=== PATIENT | female | born 1975 | race Hispanic/Latino ===

== ENCOUNTER 2017-03-31 09:46 | Inpatient (IN) | payer OTHER ==
[2017-03-31 10:00] VITALS: BMI 27.4
[2017-03-31 10:39] LABS: HEMATOCRIT 36.7 % (34.0-47.0); MEAN CELL VOLUME 88.4 fl (81.0-99.0); MEAN CORPUSCULAR HEMOGLOBIN 31.2 pg (27.0-31.0); MEAN CORPUSCULAR HGB CONC 35.3 g/dL (33.0-37.0); WHITE BLOOD COUNT 7.1 K/uL (4.8-10.8)
[2017-03-31] MEDS ORDERED: ceFAZolin IV 1 gm in Dextrose 1 GM/50 ML BAG IVPB ONE ×2 (10:46→10:47)
[2017-03-31 10:51] LABS: BLOOD UREA NITROGEN 13 mg/dl (7-17); CALCIUM 9.3 mg/dL (8.4-10.2); CARBON DIOXIDE 26 mmol/L (22-30); CHLORIDE 106 mmol/L (98-107); GFR AFRICAN-AMERICAN > 60; GLUCOSE,RANDOM 95 mg/dL (65-105); POTASSIUM 4.4 MMOL/L (3.6-5.0); SODIUM 142 mmol/l (132-148)
[2017-03-31] MEDS ORDERED: Gentamicin 80 mg/2mL Inj. ONE (11:23)
[2017-03-31] MEDS ORDERED: Midazolam 2 MG/2 ML VIAL ONE (11:50)
[2017-03-31] MEDS ORDERED: Propofol 10 mg/ml Inj (20 ML) ONE (11:50)
[2017-03-31] MEDS ORDERED: Rocuronium 10 mg/ml (5 ml) ONE (11:51)
[2017-03-31] MEDS ORDERED: Lidocaine 4% (Laryng-O-Jet) Kit MM ONE (11:51)
[2017-03-31] MEDS ORDERED: Succinylcholine 200 mg/10 ml Inj IV ONE (11:51)
[2017-03-31] MEDS ORDERED: ePHEDrine 50 mg/ml Inj ONE (11:51)
[2017-03-31] MEDS: Bupivacaine 0.5% Inj(30mL) ONE ×2 (12:35→15:54)
[2017-03-31] MEDS ORDERED: Dexamethasone 4 mg/1 ml ONE (12:43)
[2017-03-31] MEDS ORDERED: Desflurane Inhalation Anesthetic Liq (240 ml) ONE (12:56)
[2017-03-31] MEDS ORDERED: SULFANILAMIDE (AVC) VAG CREAM VG ONE (13:49)
[2017-03-31] MEDS ORDERED: Lactated Ringer's 1,000 ML IV ONE ×4 (14:05→15:30)
[2017-03-31] MEDS: SENSORCAINE 0.5% W/EPINEPHRINE 50ML MDV IJ ONE ×2 (14:53→15:50)
[2017-03-31] MEDS ORDERED: Sodium Chloride 0.9% 1,000 ML IV ONE (14:55)
[2017-03-31] MEDS ORDERED: HEMOSTATIC MATRIX 10 ML DIS.NEEDLE TOP ONE ×2 (15:00)
[2017-03-31] MEDS ORDERED: Neostigmine Methylsulfate 2 MG/2 ML ML IV ONE (15:50)
[2017-03-31] MEDS ORDERED: Lactated Ringer's 1,000 ML IV SCH (16:15)
[2017-03-31] MEDS: HYDROmorphone 0.5 mg/0.5 ml ISec IVP PRN ×6 (16:30→17:45)
[2017-03-31] MEDS: Oxycodone/Acetaminophen 5/325 mg Tab PO PRN (20:58)
[2017-03-31] MEDS: Lactated Ringer's 1,000 ML IV SCH (22:01)
--- NOTE | 2017-03-31 23:46 | PCM.OP ---
Operative Report - Operative Report Date of Surgery/Procedure: 03/31/17 Time of Surgery/Procedure: 16:00 Surgeon: Kelly Liriano MD Self Propelled Hot Mix Roller Operator: Gary Seay MD Anesthesia/Sedation: Gen with ET Tube Pre-Operative Diagnosis: Chronic pelvic pain. Prolpase uterus. Cystocele. Urinary incontinence Post-Operative Diagnosis: Uterine prolpase. Cystocele. Urinry incontinence. Abdominal keloid / tethered old abdominal incision. chronic pelvic pain Indication for Surgery: worsening chronic pelvic pain. worsening prolapse uterus symptoms. worsening urinry incontinence Operative Findings: Stage III uterine prolapse. Stage III cystocele. normal cystoscopy finding at the end of the procedure. Procedure/Operation Description: 1. Robotic Sacrocolpopexy. (primary surgeon). 2. Mid urethral sling. (primary surgeon). 3. Diagnostic cystosocpy. ( primary surgeon). 4. Revision of abdominal keloid and tethered abdominal incision / laparotomy for extraction of uterus. 5. Total robotic hysterectomy bilateral salpingectomy (Self Propelled Hot Mix Roller Operator surgeon) hysterectomy completed by Anneliese Seay MD, see dictation. Detailed operative report. This is a 41 years old female with long-standing and worsening symptoms of urinary incontinence pelvic pain and uterine prolapse for several years. The patient is reporting a vaginal bulge and pressure worsening over time. The patient reported these symptoms to be debilitating and adversely affecting her quality of life. The patient is also reporting leakage of urine upon any exertion, coughing sneezing as well as urgency incontinence. For several years these symptoms of severe leakage of urine on exertion have worsened. In addition, the patient is reporting a vaginal bulge which is growing over time; it is the source of her major concern and discomfort during sexual activity. A complete work up in the office which included an ultrasound and urodynamic study revealed a picture of mixed urinary incontinence with a strong stress urinary incontinence component. The patient had a long period of failed conservative management. I was asked to evaluate this patient for symptoms of prolapse uterus and urinary incontinence by Dr. Seay prior to a decision to undergo a robotic hysterectomy. Following the complete workup, a long discussion of surgical vs other conservative was completed. A decision was made to proceed with a surpracervical robotic hysterectomy, sacrocolpopexy as well as mid- urethral sling procedure using synthetic mesh material. After a detailed discussion about the pros and cons of using polypropylene midurethral sling, all benefits and risks were reviewed including but not limited to the risk of infection, mesh erosion / extrusion, chronic pain and dyspareunia. In addition, the FDA warning about mesh utilization for prolapse and incontinence surgery was reviewed in details, and specific written consent was obtained. The patient elected to proceed with a sacrocolpopexy and midurethral sling today fully understanding the risk associated with utilizing mesh material. Other alternatives were also offered to the patient, including a biological graft such as porcine sling as well as the patient owns fascia as sling material, she elected to proceed with a mesh sling despite associated risks. Lastly, the patient elected to undergo a Sacrocolpopexy with the use of synthetic mesh. After proper consent was obtained from the patient, patient was taken to the operating room where general anesthesia was obtained without difficulty. She was placed in the dorsal lithotomy position, her legs were placed in adjustable Golden stirrups, and careful attention was placed not to over-flex or over- rotate the lower extremities. Kohli catheter was inserted under sterile conditions. She was prepped and draped appropriately for a robotic hysterectomy , sacrocolpopexy and mid-urethral sling procedure. Examination under anesthesia revealed a widened introitus with a third degree cystourethrocele and third degree epical uterine prolapse. After appropriate prep, the patient was draped in the usual manner for robotic surgery and vaginal surgery. See separate dictation for the start of the surgery by Dr. Seay for the robotic hysterectomy. I was asked to provide intraoperative consultation and complete the colposuspension using robotic sacrocolpopexy as well as midurethral sling. Following the completion of the hysterectomy, I continued on to complete the sacrocolpopexy and midurethral sling. Attention was then turned to the presacral space. The peritoneum overlying it was tented upward and incised sagittally all the way down to the posterior vaginal wall keeping the right ureter in view at all times. The longitudinal ligament over the scarum was cleared and ready for the anchoring of the long arm of the Y mesh. The posterior vaginal wall was dissected free from the peritoneum using monopolar Endoshears. Two obturators had been placed, one in the vagina, one in the rectum , to assist with this dissection. The dissection was carried out to 5 cm from the vaginal apex / cervix. A similar dissection was carried out anteriorly with the same technique. Excellent hemostasis was noted. A Y mesh was placed into the peritoneal cavity. The short posterior arm of the Y mesh was anchored with 6 interrupted CV-2 [place] sutures to the posterior vaginal wall. The second short anterior arm of the Y mesh was sutured to the anterior vaginal wall with 7 interrupted CV-2 sutures. Tension was performed to lift the vagina into the pelvic cavity to approximate the full length of the vagina in a tension-free fashion. The long arm of the Ymesh was anchored to the anterior longitudinal ligament with 3 interrupted CV-2 [place] sutures. The peritoneum was then closed with running 2-0 monocryl. The pelvis was irrigated copiously and freed of all clots and debris. Excellent hemostasis was noted. The abdomen was throughout irrigated and cleared of all clots and debris. FloSeal was applied to the incision sites. Excellent hemostasis was again noted. All robotic and laparoscopic instruments removed under direct visualization. The robotic arms were undocked, and a da Jamey robotic system was wheeled away from the patient' s bedside. Both administrative personal assistant and camera ports were closed at the fascial layer utilizing a 2-0 Vicryl suture material in interrupted fashion. Pneumoperitoneum was reduced and all skin incisions were closed utilizing 4-0 Monocryl in a subcutaneous fashion. The uterus was extracted from the abdominal cavity via a small pfenensiel incision. An old incision was removed due to a painfull tethering and keloid formation. The old incision was removed and released from the underlined fascia. The small incision as made with a scalpel all the way down to the rectus muscle, the muscle was in the midline and the incision was extended. The peritoneal cavity was entered and the uterus was extracted and sent to pathology. The fascia was closed with o Vicryl and the skin was closed with a 4-0 monocryl in subQ fashion. Dermabond was applied to all incisions. The anterior vaginal wall over the midurethral area was grasped with a pair of Allis clamps and tenting the vaginal wall from the underlying urethra. Local anesthetic solution of 0.25% Marcaine with epinephrine diluted 1:1 was used to infiltrate the periurethral space. A total of 20 cc was utilized. Using a scalpel, a midurethral vertical incision about 1 cm was made through the vaginal epithelium and periurethral fascia. Careful lateral sharp dissection using Metzenbaum scissors towards the inferior pubic ramus to eventually allow the sling graft to lie flat against the urethra. Next , the sling mesh was loaded onto the needle tip. The needle tip was inserted through one side of the incision towards the medial edge of the obturator foramen approximately 45 degrees of the horizontal plane. Using an arching helical motion, the needle tip was advanced through pushing the obturator internus muscle. The needle was released from the graft and loaded on the other side of the sling ready for deployment to the contralateral side. Ensuring the sling is flat on the urethra and not twisted, the needle was advanced in an arching motion towards the obturator internus muscle on the opposite site. Attention was readdressed to allow a flat placement with tension- free sling on the midurethra. Following saline irrigation and good hemostasis was noted, the vaginal mucosa was closed with 2-0 Vicryl in a locking fashion. At the conclusion of this procedure, a diagnostic cystoscopy was completed. The Kohli catheter was removed; the bladder was distended with approximately 350 cc of normal saline. A 30 cystoscope was introduced and a survey of the bladder anatomy was completed. The base, and the dome of the bladder appeared normal, both ureteral orifices appeared normal and were efluxing urine freely. The urethra appeared normal. A Kohli catheter was reinserted. Vaginal packing was inserted to be removed the next morning. Patient emerged from general anesthesia without difficulty, and was taken to recovery room in stable condition. Prior to incision the patient received antibiotics, prior to closure sponge lap and needle counts were correct x2. Estimated Blood Loss: 20 Blood Replaced: none Sponge/Instrument Count: correct times 2 Drains: none Complications: none Specimen: uterus falopian tubes Discharge & Condition: stable condition and discharge day 1 when criteria met.
[2017-04-01] MEDS: Oxycodone/Acetaminophen 5/325 mg Tab PO PRN ×3 (02:38→13:04)
[2017-04-01 06:10] VITALS: BP 127/64; PULSE 82; RESP 20; TEMP 99.8; O2SAT 99
[2017-04-01] MEDS: Lactated Ringer's 1,000 ML IV SCH (06:31)
--- NOTE | 2017-04-01 08:26 | OP ---
PROCEDURE DATE: 03/31/2017 SURGEON: Gary Seay MD. ASSISTED BY: Ray Barnes. PREOPERATIVE DIAGNOSES: Pelvic pain, dysmenorrhea, dyspareunia, endometriosis and urinary incontinence. POSTOPERATIVE DIAGNOSES: Pelvic pain, dysmenorrhea, dyspareunia, endometriosis and urinary incontinence. PROCEDURE PERFORMED: Robotic excision of endometriosis and supracervical hysterectomy. Bilateral salpingectomy , minilaparotomy and Revision of Scar , Excision of keloid There is a separate procedure, which is a sacrocolposuspension and a ureteral sling as well as cystoscopy, which was performed and will be dictated separately by Dr Barnes . He will dictate this separately. COMPLICATIONS: None. SPECIMEN: Pelvic endometriosis and uterus and fallopian tubes sent to pathology. ESTIMATED BLOOD LOSS: Minimal. INDICATION FOR THE PROCEDURE: The patient is a 41-year-old who with a history of 2 prior sections who presented with a long history of severe dysmenorrhea and dyspareunia. She had a full evaluation by me with clear peritoneal signs suggestive of endometriosis. She also had evidence of adenomyosis in her uterus on ultrasound. Therefore, she was counseled with regards to the risks and benefits of the procedure and likelihood of the procedure to solve her problem and all other alternatives including medical treatment were offered to her. The patient prior to the surgery also complained of significant urinary incontinence. She was sent for evaluation to Dr. Barnes and he performed a full evaluation on her that he will dictate separately and he recommended at the same time, a sacrocolpopexy as well as a ureteral sling be performed. The patient was separately consented and counseled by who will dictate these two procedures separately. The patient signed the consent for a supracervical hysterectomy and salpingectomy and excision of endometriosis and was taken to the OR. DESCRIPTION OF PROCEDURE: After adequate anesthesia was obtained, the patient was placed in the dorsal lithotomy position. She was prepped and draped. The surgeons were gowned and gloved. All areas that were prone to pressure were extensively padded and at this point, the procedure was started. Attention was on the abdomen where an incision was made on the umbilicus and with the open laparoscopy technique, the abdominal cavity was entered and the abdomen was insufflated. A trocar was placed, a cannula was placed and the pelvis was visualized revealing evidence of endometriotic implant in the left pelvic sidewall in the left ovarian fossa. Both ovaries appeared to be normal and free of any lesions. There was an area of endometriosis also on the left fallopian tube. At this point, under direct visualization, 4 additional trocars were inserted; left upper quadrant, left mid quadrant, right upper quadrant and right mid quadrant. At this point, the surgeon started the console and the procedure started. First part of the procedure involved a bilateral salpingectomy; both fallopian tubes were elevated and the mesosalpinx was progressively coagulated and cut until both fallopian tubes were freed bilaterally. Attention was on the right hand side where the round ligament was bipolar coagulated and dissected and at this point, the endoperitoneal flap was developed. At this point, the right utero-ovarian ligament was bipolar coagulated and cut. Similarly on the opposite side on the left hand side, the round ligament was coagulated and cut and the utero-ovarian ligament again on the left hand side was coagulated and cut. Attention was on the left pelvic sidewall where an area of endometriosis was noted and after identifying the ureter, the retroperitoneum was entered and a progressive dissection was performed obtaining multiple samples of peritoneum-containing endometriosis. A full dissection was performed excising a large area of peritoneum-containing endometriosis from the left pelvic sidewall, dissecting the ureter all the way with extreme care not to injure it. At this point, the dissection continued and the uterine vessels were bipolar coagulated on the left and on the right side and cut. Once this was done, the top of the uterus was amputated leaving the cervix in place. Throughout the procedure, excellent hemostasis was maintained. The inner endocervix was then monopolar coagulated to ablate any potential endometrial tissue and a 2-0 Vicryl suture was used to close the defect. At this point, it was checked for hemostasis, appeared to be excellent. Both ureters were identified and appeared to be in a perfect anatomical position and uninjured. The robotic console then was handed over to Dr. Barnes who proceeded with a sacrocolposuspension, which he performed. After Dr. Barnes completed his part of the procedure, the Da Jamey robot was undocked and an incision was made along the patient's old incision of scar and a keloid that was present was removed and the incision was completely revised. Through this incision which was carried down all the way to the fascia, the peritoneum was entered and the uterus and the fallopian tubes were removed and sent to pathology. At this point, the peritoneum was closed, the muscles were re-approximated and the fascia was closed with a running suture of 2-0 Vicryl. The incision again was revised, dissected and undermining subcutaneous fat as the original incision was buckled in significantly. A subcutaneous closure with 2-0 Vicryl was used for the subcutaneous fat and a subcuticular closure was performed utilizing 4-0 Monocryl. The robotic incisions were closed with 0 Vicryl for the fascia and 4-0 Monocryl for the skin. Dermabond was also used. At this point, Dr. Barnes performed a suburethral sling, which he will also dictate separately. At the end of the procedure, all tapes and instruments were correct. The patient tolerated the procedure well and was taken to recovery in excellent condition. Gary Seay MD MTDJillian
--- NOTE | 2017-04-01 10:51 | CP.PCM.PN ---
Subjective - Date & Time of Evaluation Date of Evaluation: 04/01/17 Time of Evaluation: 10:49 - Subjective Subjective: Patient states pain is 4/10 and she was able to get out of bed without much increased pain. Objective - Vital Signs/Intake and Output Vital Signs (last 24 hours): Temp Pulse Resp BP Pulse Ox 99.8 F H 82 20 127/64 99 04/01/17 05:00 04/01/17 05:00 04/01/17 05:00 04/01/17 05:00 04/01/17 05:00 Intake and Output: 04/01/17 04/01/17 06:59 18:59 Intake Total 2000 Output Total 2100 Balance -100 - Medications Medications: Current Medications Lactated Ringer's (Lactated Ringer's) 1,000 mls @ 125 mls/hr IV .Q8H LESA Lactated Ringer's (Lactated Ringer's) 1,000 mls @ 125 mls/hr IV .Q8H ELSA Last Admin: 04/01/17 06:31 Dose: 125 mls/hr Ketorolac Tromethamine (Toradol) 30 mg IVP Q6 PRN PRN Reason: Pain, severe (8-10) Last Admin: 03/31/17 21:54 Dose: 30 mg Ondansetron HCl (Zofran Inj) 4 mg IVP Q4 PRN PRN Reason: Nausea/Vomiting Oxycodone/Acetaminophen (Percocet 5/325 Mg Tab) 1 tab PO Q4 PRN PRN Reason: Pain, moderate (4-7) Stop: 04/03/17 16:47 Last Admin: 04/01/17 06:32 Dose: 1 tab - Labs Labs: 03/31/17 10:15 03/31/17 10:15 - Respiratory Exam Additional comments: vaginal packing removed. No bleedingn noted. Sanches removed, due to void. Abd mildly distended. soft, mildly tender Assessment and Plan (1) Urinary incontinence Assessment & Plan: POD#1 s/p hysterectomy, uretreral sling -packing removed -sanches d/c'd, for voiding trial -d/c home after patient voids -f/u Dr. Seay as outpatient, call for appt -d/w Dr. Seay, agrees with aove Status: Acute (2) Dysmenorrhea Status: Acute (3) Dyspareunia Status: Acute (4) Chronic pelvic pain in female Status: Acute (5) Endometriosis Status: Acute
== END 2017-04-01 14:30 | disposition home or self-care (01) | DRG 743 ==
LOC: H.OPSURG 09:46 → H.PEDS 16:36
PROVIDERS: ADMIT Obstetrics & Gynecology Reproductive Endocrinology; ATTEND Obstetrics & Gynecology Reproductive Endocrinology
PROC: 0UT90ZL Resection of Uterus, Supracervical, Open Approach (ICD-10-PCS; 2017-03-31)
PROC: 0UT70ZZ Resection of Bilateral Fallopian Tubes, Open Approach (ICD-10-PCS; 2017-03-31)
PROC: 0USG0ZZ Reposition Vagina, Open Approach (ICD-10-PCS; 2017-03-31)
PROC: 0TSD0ZZ Reposition Urethra, Open Approach (ICD-10-PCS; 2017-03-31)
PROC: 8E0W0CZ Robotic Assisted Procedure of Trunk Region, Open Approach (ICD-10-PCS; 2017-03-31)
PROC: 0HB7XZZ Excision of Abdomen Skin, External Approach (ICD-10-PCS; 2017-03-31)
PROC: 0TJB8ZZ Inspection of Bladder, Via Natural or Artificial Opening Endoscopic (ICD-10-PCS; 2017-03-31)
PROC: 0UB90ZZ Excision of Uterus, Open Approach (ICD-10-PCS; principal; 2017-03-31 13:00)
PROC: 0DBW0ZZ Excision of Peritoneum, Open Approach (ICD-10-PCS; 2017-03-31 13:00)
DX: N81.3 Complete uterovaginal prolapse (principal); L90.5 Scar conditions and fibrosis of skin; N39.46 Mixed incontinence; N94.10 Unspecified dyspareunia; N94.6 Dysmenorrhea, unspecified; L91.0 Hypertrophic scar; N80.2 Endometriosis of fallopian tube; N80.3 Endometriosis of pelvic peritoneum; N80.0 Endometriosis of uterus